=== PATIENT | female | born 1995 | race Caucasian/White ===

== ENCOUNTER 2018-12-11 20:31 | Day surgery (SDC) | payer OTHER ==
[2018-12-11 21:49] VITALS: BP 113/79; TEMP 98.9
--- NOTE | 2018-12-11 22:09 | PDOC.LDHP ---
Labor and Delivery H&P Chief complaint: contractions HPI: 23 y/o G1 at 39w6d, patient of Dr. Puckett, presents with ctx q 5 mins since 5pm. Denies VB, LOF, or decreased FM. ROS neg for HEENT, cv, pulm, gi, gu, neuro, psych, skin, musculoskeletal or constitutional symptoms other than mentioned above. OB History Details: None Current complications: none Past Medical History: None Current medications: pre- vitamins Previous surgical history: none Allergies/Adverse Reactions: Allergies Allergy/AdvReac Type Severity Reaction Status Date / Time No Known Allergies Allergy Unverified 12/11/18 21:41 Social history: none - Physical Exam Vital signs reviewed and normal: yes General: NAD, resting Lungs: nonlabored breathing Abdomen: gravid Extremeties: no edema FHT: category 1 (140s, mod variability, + accels, no decels) [place] contractions every: intermittent - Vaginal Exam cm dilated: 1 (1.5) Effacement: 75% Station: -3 - Assessment 23 y/o G1 at 39w6d with no e/o active labor. status reassuring with reactive NST. - Plan -: D/c home with precautions. Advised to keep appointment scheduled for tomorrow.
== END 2018-12-11 22:43 | disposition home or self-care (01) ==
LOC: L&D/OP 20:31
PROVIDERS: ATTEND Family Medicine
DX: O47.1 False labor at or after 37 completed weeks of gestation (principal); Z3A.39 39 weeks gestation of pregnancy
CPT/HCPCS: 99282

== ENCOUNTER 2018-12-12 00:04 | Inpatient (IN) | payer OTHER ==
[2018-12-12] MEDS ORDERED: Butorphanol Tartrate 1 MG/ML VIAL ONE (01:02)
[2018-12-12] MEDS ORDERED: Ondansetron PF 4 MG/2 ML Vial ONE ×3 (01:02→14:10)
[2018-12-12] MEDS ORDERED: Butorphanol Tartrate 1 MG/ML VIAL IM SCH (01:15)
[2018-12-12] MEDS: Lactated Ringer's 1,000 ML IV SCH ×4 (02:43→22:29)
[2018-12-12] MEDS ORDERED: Ondansetron PF 4 MG/2 ML Vial IVP PRN ×4 (02:53→11:32)
[2018-12-12] MEDS ORDERED: Promethazine HCl 25 MG/ML VIAL IM PRN ×3 (02:53→10:28)
[2018-12-12] MEDS ORDERED: Butorphanol Tartrate 1 MG/ML VIAL SLOW IVP PRN (02:53)
[2018-12-12] MEDS ORDERED: NS w/ Oxytocin 10 units 500 ML IV SCH (03:00)
[2018-12-12] MEDS ORDERED: Lidocaine 1% (PF) 30 ML VIAL SC PRN (03:00)
[2018-12-12] MEDS ORDERED: NS / Oxytocin 40 units/1000ml 1,000 ML IV SCH ×2 (03:00→11:45)
[2018-12-12] MEDS ORDERED: Fentanyl 4 mcg/Bup 0.1% Cadd 100 ML ONE (03:04)
[2018-12-12 03:08] LABS: Hemoglobin 11.7 g/dL (12.0-16.0); Mean Corpuscular HGB CONC 33.7 g/dL (32.0-36.0); Mean Corpuscular Hemoglobin 32.5 pg (27.0-31.0); Mean Corpuscular Volume 96.5 fL (78.0-98.0); Mean Platelet Volume 8.8 fL (7.4-10.4); Platelet Count 188 thou/uL (130-400); RBC Distribution Width 11.9 % (11.5-14.5); Red Blood Cell (RBC) Count 3.61 mill/uL (4.20-5.40); White Blood Cell (WBC) Count 17.7 thou/uL (4.8-10.8)
[2018-12-12 03:42] LABS: HBSAg Index 0.34 S/CO (0-0.99); Hep B Surf Ag Non-Reactive S/CO (NonReactive)
[2018-12-12] MEDS ORDERED: diphenhydrAMINE 50 MG/ML VIAL IVP PRN ×2 (03:47→10:28)
[2018-12-12] MEDS ORDERED: ePHEDrine/0.9% NaCl/PF SYRINGE 50 mg/10 ml SLOW IVP PRN (03:47)
[2018-12-12] MEDS ORDERED: Acetaminophen 325 MG TAB PO PRN (03:47)
[2018-12-12] MEDS ORDERED: Lactated Ringer's 500 ML IV PRN (03:47)
[2018-12-12] MEDS ORDERED: Naloxone HCl 0.4 mg/ml Vial IVP PRN ×4 (03:47→10:28)
[2018-12-12] MEDS ORDERED: Communication Order-Pharmacy FS SCH ×2 (04:00→10:30)
[2018-12-12] MEDS ORDERED: Fentanyl 4 mcg/Bupivacaine 0.1% Cassette 100 ML EPIDURAL SCH (04:00)
[2018-12-12 04:51] LABS: Syphilis Antibody Nonreactive (Nonreactive); Syphilis Antibody Index 0.04 S/CO (<1.00 Non-Reactive)
[2018-12-12] MEDS: NS w/ Oxytocin 10 units 500 ML IV SCH (06:31)
[2018-12-12] MEDS ORDERED: Ampicillin 2 GM in Sodium Chloride 0.9% 100 ML IVPB SCH (09:30)
[2018-12-12] MEDS ORDERED: Gentamicin Sulfate 80 MG in Premix Bag 1 BAG IVPB SCH (09:30)
[2018-12-12] MEDS ORDERED: Bicitra 30 ML UDCUP ONE (09:47)
[2018-12-12] MEDS ORDERED: Oxytocin 10 UNITS/ML VIAL ONE (10:03)
[2018-12-12] MEDS ORDERED: PROPOFOL 20 ML ONE (10:03)
[2018-12-12] MEDS ORDERED: Lidocaine 2% PF 5 ML VIAL ONE (10:18)
[2018-12-12] MEDS ORDERED: Lidocaine 2% MPF 10 ML AMP (For Epidural Use) ONE ×2 (10:24→15:00)
[2018-12-12] MEDS ORDERED: Fentanyl 100 MCG/2 ML VIAL ONE (10:24)
[2018-12-12] MEDS ORDERED: L&D-Morphine 4 MG/ML VIAL SLOW IVP PRN (10:28)
[2018-12-12] MEDS ORDERED: Naloxone HCl 0.4 mg/ml Vial IV PRN (10:28)
[2018-12-12] MEDS ORDERED: Promethazine HCl 25 MG SUPP PR PRN (10:28)
[2018-12-12] MEDS ORDERED: Meperidine HCl/PF 25 MG/ML VIAL SLOW IVP PRN (10:28)
[2018-12-12] MEDS ORDERED: HYDROmorphone 2 MG/ML VIAL SLOW IVP PRN (10:28)
[2018-12-12] MEDS ORDERED: Ondansetron HCl/PF 4 MG/2 ML Vial IVP PRN (10:28)
[2018-12-12] MEDS ORDERED: Methylergonovine 0.2 MG TAB ONE (10:30)
[2018-12-12] MEDS ORDERED: Ketorolac Tromethamine 30 MG/ML VIAL IVP SCH (10:30)
[2018-12-12] MEDS ORDERED: Misoprostol 200 MCG TAB ONE (10:30)
[2018-12-12] MEDS ORDERED: Methylergonovine 0.2 MG/ML VIAL ONE (10:30)
[2018-12-12] MEDS ORDERED: Carboprost 250 MCG/ML AMP ONE (10:30)
[2018-12-12] MEDS ORDERED: MORPHINE 5 MG/10 ML PF VIAL ONE (10:30)
[2018-12-12 11:02] LABS: Actual Bicarbonate (HCO3a) 21.4 mEq/L (22-28); Analyzer IN Cardio OR; Base Excess (BEa) -7.8 mEq/L (-2.0 to +3.0)
[2018-12-12] MEDS ORDERED: diphenhydrAMINE 25 MG CAP PO PRN (11:32)
[2018-12-12] MEDS ORDERED: Simethicone Chewable 80 MG TAB PO PRN (11:32)
[2018-12-12] MEDS ORDERED: Bisacodyl 10 MG SUPP PR PRN (11:32)
[2018-12-12] MEDS ORDERED: Lanolin Ointment 7 GM TUBE TOP PRN (11:32)
[2018-12-12] MEDS ORDERED: Lactated Ringer's 1,000 ML IV SCH (11:45)
[2018-12-12] MEDS ORDERED: Bupivacaine/Epinephrine 0.25% 30 ML VIAL ONE (15:00)
[2018-12-12] MEDS: Ibuprofen 800 MG TAB PO SCH ×2 (16:01→23:09)
[2018-12-12] MEDS: Ferrous Sulfate 325 MG TAB PO SCH (16:01)
[2018-12-12] MEDS: CEFAZOLIN 2 GM in Premix Bag 1 BAG IVPB SCH ×2 (16:03→23:25)
[2018-12-12] MEDS: metroNIDAZOLE 500 MG in Premix Bag 1 BAG IVPB SCH ×2 (16:03→22:05)
[2018-12-12] MEDS ORDERED: HYDROcodone/Acetaminophen 5/325 mg Tablet PO PRN ×2 (16:30→22:30)
--- NOTE | 2018-12-12 17:29 | OP ---
DATE OF PROCEDURE: 12/12/2018 SURGEON: Lloyd Puckett MD FITTER TYPE BAR AND SEGMENT: Trung Flores MD. PROCEDURE PERFORMED: Primary low-transverse section. ANESTHESIA: Epidural. QUANTITATIVE BLOOD LOSS: 1060 mL. PREOPERATIVE DIAGNOSES: 1. Term intrauterine 2. Failure to descend 3. Intrapartum fever 4. Non-reassuring heart tones POSTOPERATIVE DIAGNOSES: 1. Term intrauterine , delivered. 2. Failure to descend 3. Persistant OP presentation 4. Intrapartum fever 5. Hemorrhage secondary to uterine atony and extension of lower uterine segment INDICATIONS: Ms. Riley is a 23-year-old, 1, para 0, at 40.0 weeks, who presented in spontaneous labor last night. She dilated to 10 cm with 100% effacement and descended to 0 station before failing to descend for 2.5 hours with adequate contractions and adequate maternal effort. Discussion was had with the patient regarding proceeding with primary for failure to descend and maternal exhaustion. The patient also developed a fever of 100.4F while she was actively pushing. PROCEDURE IN DETAIL: The patient provided informed consent after risks, benefits, and alternatives were discussed. She received preoperative antibiotics of ampicillin 2 g IV, cefazolin 2 g IV, and gentamicin 80 mg IV. She was taken to the OR and her epidural was bolused. She was placed in the supine position with left lateral tilt and prepped and draped in usual sterile fashion. A Pfannenstiel incision was made. Subcutaneous tissues were sharply and bluntly dissected down to level of fascia, which was sharply nicked on both sides of the linea alba with scalpel. Curved Sorensen scissors were used to extend the fascial incision in the curvilinear fashion. Rectus muscles were divided digitally, retracted manually. The peritoneum was digitally entered and retracted manually. Bladder blade was placed and lower uterine segment was identified. A clean scalpel was used to make a low transverse score and the hysterotomy was carried down sharply in the midline with scalpel. Thick meconium-stained fluid was noted upon entry into the uterine cavity. The was noted to be deeply impacted in the pelvis in the occiput posterior position, but was successfully manually elevated to the level of the hysterotomy and easily delivered through the hysterotomy with fundal pressure. Additional thick meconium was noted to be coming from the child at this time. The cord was immediately cut, clamped, and the child was taken to the awaiting Resuscitative Team. Cord gas segment was collected as well as cord blood for routine analysis. The hysterotomy was exteriorized and dry curetted with two laparotomy sponges. Extension of the hysterotomy occurred bilaterally which did not involve the uterine arteries. Ring forceps and an Allis clamp were placed on the the inferior edge and the corners of the lower uterine segment. Uterine atony was noted and resolved with methergine x 1 and hemabate x 1. The hysterotomy was closed using 0 Vicryl in a running locking fashion. A second imbricating layer was done with a second 0 Vicryl stitch. There were several small bleeding vessels involving the serosa, which were addressed using Bovie cautery. Two small [id number] stitches were needed along the hysterotomy to make the hysterotomy completely hemostatic. The abdomen was irrigated and the posterior aspect of the uterus was inspected. There were two smaller serosal bleeding areas noted, which were addressed with Bovie cautery and cauterizing powder. Seprafilm was applied and the uterus was placed back in the abdomen. It was inspected one final time, noted to be hemostatic. The peritoneum was closed using 2-0 Vicryl stitch in a running nonlocking fashion. Rectus muscles were inspected and noted to be hemostatic. The fascia was closed using 0 Vicryl. Subcutaneous tissues were closed using 3-0 Vicryl. Skin was reapproximated with lokesh. Counts were correct x3. The patient tolerated the procedure well and went to the recovery unit for routine care. FINDINGS: 1. Grossly normal viable male , born at 1025 hours with Apgars of 8 and 9 at one and five minutes respectively. 2. Intact placenta with marked calcifications, sent to Pathology for further evaluation and due to intrapartum fever 3. Arterial cord gas collected at the time delivery with pH of 7.13. 4. Bilateral uterine extensions, which were appropriately reapproximated and hemostatic. 5. Thick meconium stained amniotic fluid. Dr. Puckett was present for the entire case. Job ID: [id number] [facility]
[2018-12-12] MEDS: Ketorolac Tromethamine 30 MG/ML VIAL IVP PRN (19:26)
[2018-12-12] MEDS ORDERED: Ferrous Sulfate 325 MG TAB PO SCH (21:00)
[2018-12-12] MEDS ORDERED: Meperidine HCl/PF 25 MG/ML VIAL IM PRN (22:30)
[2018-12-12] MEDS: Docusate Calcium (SURFAK) 240 MG CAP PO SCH (22:30)
[2018-12-13] MEDS: Ketorolac Tromethamine 30 MG/ML VIAL IVP PRN (02:50)
[2018-12-13] MEDS: Lactated Ringer's 1,000 ML IV SCH ×3 (02:50→19:20)
[2018-12-13] MEDS: metroNIDAZOLE 500 MG in Premix Bag 1 BAG IVPB SCH ×2 (05:18→14:50)
[2018-12-13 06:00] LABS: Hemoglobin 7.5 g/dL (12.0-16.0); Mean Corpuscular HGB CONC 33.5 g/dL (32.0-36.0); Mean Corpuscular Hemoglobin 32.8 pg (27.0-31.0); Mean Platelet Volume 7.8 fL (7.4-10.4); Platelet Count 130 thou/uL (130-400); Red Blood Cell (RBC) Count 2.27 mill/uL (4.20-5.40); White Blood Cell (WBC) Count 14.4 thou/uL (4.8-10.8)
[2018-12-13] MEDS: Ibuprofen 800 MG TAB PO SCH ×2 (06:32→14:02)
[2018-12-13] MEDS: NS w/ Oxytocin 10 units 500 ML IV SCH (06:32)
[2018-12-13] MEDS: CEFAZOLIN 2 GM in Premix Bag 1 BAG IVPB SCH ×2 (06:33→14:02)
[2018-12-13] MEDS: Docusate Calcium (SURFAK) 240 MG CAP PO SCH (08:50)
[2018-12-13] MEDS: Prenatal Vitamin 1 TAB PO SCH (08:50)
[2018-12-13] MEDS: Ferrous Sulfate 325 MG TAB PO SCH ×2 (08:50→16:44)
[2018-12-13] MEDS ORDERED: Ibuprofen 800 MG TAB ONE (22:05)
[2018-12-14] MEDS ORDERED: Ibuprofen 800 MG TAB ONE (04:46)
[2018-12-14] MEDS: Docusate Calcium (SURFAK) 240 MG CAP PO SCH ×2 (11:05→22:31)
[2018-12-14] MEDS: CEFAZOLIN 2 GM in Premix Bag 1 BAG IVPB SCH ×4 (11:05→22:30)
[2018-12-14] MEDS: Lactated Ringer's 1,000 ML IV SCH ×3 (11:06→18:35)
[2018-12-14] MEDS: Ibuprofen 800 MG TAB PO SCH ×3 (11:06→22:31)
[2018-12-14] MEDS: metroNIDAZOLE 500 MG in Premix Bag 1 BAG IVPB SCH ×3 (11:06→22:30)
[2018-12-14] MEDS: Prenatal Vitamin 1 TAB PO SCH (11:07)
[2018-12-14] MEDS: Ferrous Sulfate 325 MG TAB PO SCH ×2 (11:07→16:46)
[2018-12-14] MEDS: NS w/ Oxytocin 10 units 500 ML IV SCH (11:07)
[2018-12-14] MEDS ORDERED: Sodium Chloride 0.9% 10 ML ONE (13:41)
[2018-12-15] MEDS: NS w/ Oxytocin 10 units 500 ML IV SCH (06:50)
[2018-12-15] MEDS: Ibuprofen 800 MG TAB PO SCH ×2 (06:50→13:57)
[2018-12-15] MEDS: metroNIDAZOLE 500 MG in Premix Bag 1 BAG IVPB SCH ×2 (06:51→13:58)
[2018-12-15] MEDS: Ferrous Sulfate 325 MG TAB PO SCH (08:08)
[2018-12-15] MEDS: CEFAZOLIN 2 GM in Premix Bag 1 BAG IVPB SCH ×2 (08:08→15:40)
[2018-12-15] MEDS: Docusate Calcium (SURFAK) 240 MG CAP PO SCH (09:34)
[2018-12-15] MEDS: Prenatal Vitamin 1 TAB PO SCH (09:34)
[2018-12-15 14:53] VITALS: BP 123/70; TEMP 98.3
== END 2018-12-15 18:30 | disposition home or self-care (01) | DRG 787 ==
LOC: L&D/OP 00:04 → L&D 02:40 → 3SW 15:51
PROVIDERS: ADMIT Family Medicine; ATTEND Family Medicine
PROC: 10D00Z1 Extraction of Products of Conception, Low, Open Approach (ICD-10-PCS; principal; 2018-12-12)
DX: O76 Abnormality in fetal heart rate and rhythm complicating labor and delivery (principal); O75.2 Pyrexia during labor, not elsewhere classified; O72.1 Other immediate postpartum hemorrhage; O32.4XX0 Maternal care for high head at term, not applicable or unspecified; Z3A.40 40 weeks gestation of pregnancy; Z37.0 Single live birth
CPT/HCPCS: 36415; 51702; 82805; 85027; 86780; 86850; 86900; 86901; 87340; 88307; 99282; 99285; J0290; J0595; J0690; J1580; J1885; J2001; J2210; J2270; J2405; J2590; J2704; J3010; J3490

== ENCOUNTER 2020-09-24 02:51 | Emergency (ER) | payer OTHER ==
[2020-09-24] MEDS ORDERED: Lidocaine Viscous Sol 2% 15 ml UD Cup ONE (03:31)
[2020-09-24] MEDS ORDERED: Ondansetron PF 4 MG/2 ML Vial ONE ×2 (03:31→05:55)
[2020-09-24] MEDS ORDERED: Mag-Al 1200 mg/1200 mg/30 ML UDCUP ONE (03:31)
[2020-09-24 03:56] LABS: #Lymphocytes 0.7 thou/uL (1.20-3.40); #Monocytes 0.5 thou/uL (0.11-0.59); #Neutrophils 14.9 thou/uL (1.40-6.50); %Basophils 0.2 % (0.0-1.0); %Lymphocytes 4.5 % (21.0-51.0); %Neutrophils 92.2 % (42.0-75.0); Hemoglobin 14.1 g/dL (12.0-16.0); Mean Corpuscular HGB CONC 33.6 g/dL (32.0-36.0); Mean Corpuscular Hemoglobin 30.6 pg (27.0-31.0); Mean Corpuscular Volume 91.2 fL (78.0-98.0); Mean Platelet Volume 8.6 fL (7.4-10.4); Platelet Count 231 thou/uL (130-400); RBC Distribution Width 11.7 % (11.5-14.5); Red Blood Cell (RBC) Count 4.62 mill/uL (4.20-5.40); White Blood Cell (WBC) Count 16.2 thou/uL (4.8-10.8)
[2020-09-24 04:06] LABS: Pregnancy Test - Urine (BHCG) POSITIVE (Negative); Pregu Control Background? CLEAR/WHITE (CLR/WHITE); Pregu Control Bar Appear? YES (CONTROL BAR)
[2020-09-24 04:13] LABS: Bacteria/HPF None Seen HPF (None Seen); Bilirubin 1+ (Negative); Blood, Urine Negative (Negative); Clarity Clear (Clear); Glucose, Urine (Dipstick) Normal (Negative); Ketone, Urine Greater than 150 mg/dL (Negative); Leukocyte 75 Leu/uL (Negative); Nitrite Negative (Negative); Protein, Urine (Dipstick) 50 mg/dL (Neg-Trace); RBC/HPF 0-3 HPF (0-3); Specific Gravity, Urine 1.035 (1.002-1.036); Urobilinogen Greater than 12 mg/dL (Less than 2)
[2020-09-24 04:14] LABS: Specific Gravity 1.035 (1.002-1.036)
[2020-09-24 04:16] LABS: ALT (SGPT) 76 U/L (8-55); AST (SGOT) 42 U/L (5-34); Albumin 4.9 g/dL (3.5-5.0); Alkaline Phosphatase 94 U/L (40-110); Anion Gap 18 mmol/L (10-20); BUN (Urea Nitrogen) 12 mg/dL (7.0-18.7); Bilirubin, Total 2.1 mg/dL (0.2-1.2); Calc. Creatinine Clearance 0 mL/min (70-130); Calcium 10.3 mg/dL (7.8-10.44); Carbon Dioxide 22 mmol/L (22-29); Chloride 101 mmol/L (98-107); Globulin 3.7 g/dL (2.4-3.5); Glucose 90 mg/dL (70-105); Lipase 25 U/L (8-78); Potassium 4.1 mmol/L (3.5-5.1); Protein, Total 8.6 g/dL (6.0-8.3); Sodium 137 mmol/L (136-145)
[2020-09-24] MEDS ORDERED: cefTRIAXone\\ROCEPHIN 1 GM VIAL ONE (04:33)
[2020-09-24] MEDS ORDERED: Promethazine HCl 25 MG/ML VIAL ONE (06:41)
== END 2020-09-24 09:45 | disposition home or self-care (01) ==
LOC: ERS 02:51
DX: O21.9 Vomiting of pregnancy, unspecified (principal)
CPT/HCPCS: 76856; 80053; 81003; 81015; 81025; 83690; 84702; 85025; 87086; 93976; 96365; 96375; 96376; J0696; J2405; J2550

== ENCOUNTER 2020-09-25 05:32 | Inpatient (IN) | payer OTHER ==
[2020-09-25] MEDS ORDERED: Ondansetron PF 4 MG/2 ML Vial ONE ×2 (05:48→16:55)
[2020-09-25] MEDS ORDERED: Morphine 4 MG/ML VIAL ONE ×2 (05:55→07:10)
[2020-09-25] MEDS ORDERED: Piperacillin/Tazobactam 3.375 GM VIAL ONE (06:00)
[2020-09-25 06:38] LABS: Hemoglobin 12.1 g/dL (12.0-16.0); Mean Corpuscular HGB CONC 32.5 g/dL (32.0-36.0); Mean Corpuscular Volume 92.2 fL (78.0-98.0); Mean Platelet Volume 8.4 fL (7.4-10.4); Platelet Count 177 thou/uL (130-400); RBC Distribution Width 11.9 % (11.5-14.5); Red Blood Cell (RBC) Count 4.04 mill/uL (4.20-5.40)
[2020-09-25 06:51] LABS: ALT (SGPT) 46 U/L (8-55); AST (SGOT) 17 U/L (5-34); Albumin 3.8 g/dL (3.5-5.0); Alkaline Phosphatase 93 U/L (40-110); Anion Gap 15 mmol/L (10-20); BUN (Urea Nitrogen) 6 mg/dL (7.0-18.7); Bilirubin, Total 2.8 mg/dL (0.2-1.2); Calc. Creatinine Clearance 0 mL/min (70-130); Calcium 9.3 mg/dL (7.8-10.44); Carbon Dioxide 18 mmol/L (22-29); Chloride 105 mmol/L (98-107); Glucose 131 mg/dL (70-105); Lipase 43 U/L (8-78); Potassium 4.8 mmol/L (3.5-5.1); Protein, Total 6.8 g/dL (6.0-8.3); Sodium 133 mmol/L (136-145)
[2020-09-25 06:58] LABS: Band 12 % (5-11); Lymphocytes 3 % (21-51); MDiff Complete? YES; Monocytes 11 % (0-10); Neutrophil 74 % (42-75); Vacuoles SLIGHT
[2020-09-25] MEDS ORDERED: Lactated Ringer's 1,000 ML IV SCH (11:45)
[2020-09-25 11:57] LABS: SARS-CoV-2 NAA Rapid Test Not Detected (NotDetected)
[2020-09-25] MEDS: Piperacillin/Tazobactam 3.375 GM in Sodium Chloride 0.9% 100 ML IVPB SCH ×3 (12:34→20:13)
[2020-09-25] MEDS ORDERED: Morphine 2 MG/ML VIAL SLOW IVP PRN ×2 (12:59→18:50)
[2020-09-25] MEDS ORDERED: Morphine 4 MG/ML VIAL SLOW IVP PRN (13:00)
[2020-09-25 14:20] VITALS: BMI 25.7
[2020-09-25] MEDS ORDERED: Lidocaine 1% w/Epinephrine 1:100K 20 ML VIAL ONE (16:33)
[2020-09-25] MEDS ORDERED: Bupivacaine 0.25% HCL 30 ML VIAL ONE (16:33)
[2020-09-25] MEDS ORDERED: Fentanyl 100 MCG/2 ML VIAL ONE ×3 (16:41→18:21)
[2020-09-25] MEDS ORDERED: PROPOFOL 200 MG/20 ML VIAL ONE (16:55)
[2020-09-25] MEDS ORDERED: Glycopyrrolate 0.2 MG/ML 5 ML SYRINGE ONE (16:55)
[2020-09-25] MEDS ORDERED: Lidocaine 1% PF 5 ML VIAL ONE (16:55)
[2020-09-25] MEDS ORDERED: Dexamethasone 20 MG/5 ML VIAL ONE (16:55)
[2020-09-25] MEDS ORDERED: Rocuronium Bromide 10 MG/ML (10ML VIAL) ONE (16:55)
[2020-09-25] MEDS ORDERED: Succinylcholine 200 MG/10 ml SYRINGE FS ONE (16:55)
[2020-09-25] MEDS ORDERED: SUGAMMADEX SODIUM 200 MG/2 ML VIAL ONE (18:03)
[2020-09-25] MEDS ORDERED: Ondansetron HCl/PF 4 MG/2 ML Vial IVP PRN (18:28)
[2020-09-25] MEDS ORDERED: Promethazine HCl 25 MG/ML VIAL IM PRN (18:50)
[2020-09-25] MEDS ORDERED: Dextrose 50% Abboject 50 ML SYRINGE SLOW IVP PRN (18:50)
[2020-09-25] MEDS ORDERED: Dextrose 5% in Water 1,000 ML IV PRN (18:50)
[2020-09-25] MEDS: Lactated Ringer's 1,000 ML IV SCH (20:10)
[2020-09-25] MEDS: Morphine 4 MG/ML VIAL SLOW IVP PRN (20:11)
[2020-09-25] MEDS: Acetaminophen 325 MG TAB PO PRN (20:14)
[2020-09-25] MEDS ORDERED: Acetaminophen 325 MG TAB PO PRN (22:00)
[2020-09-25] MEDS ORDERED: Ondansetron PF 4 MG/2 ML Vial IVP PRN (22:00)
[2020-09-25] MEDS ORDERED: Ondansetron ODT 4 MG TAB SL PRN (22:00)
[2020-09-26] MEDS: Piperacillin/Tazobactam 3.375 GM in Sodium Chloride 0.9% 100 ML IVPB SCH ×4 (01:32→22:04)
[2020-09-26] MEDS: Morphine 4 MG/ML VIAL SLOW IVP PRN ×3 (03:09→20:02)
[2020-09-26] MEDS: Lactated Ringer's 1,000 ML IV SCH (06:42)
[2020-09-26] MEDS: D5 1/2 NS w/20 mEq KCL 1,000 ML IV SCH (18:27)
[2020-09-26] MEDS: HYDROcodone/Acetaminophen 7.5/325 mg Tablet PO PRN (22:03)
[2020-09-27] MEDS: Piperacillin/Tazobactam 3.375 GM in Sodium Chloride 0.9% 100 ML IVPB SCH ×4 (02:25→18:39)
[2020-09-27] MEDS: HYDROcodone/Acetaminophen 7.5/325 mg Tablet PO PRN ×3 (05:10→19:53)
[2020-09-27] MEDS: D5 1/2 NS w/20 mEq KCL 1,000 ML IV SCH ×4 (06:38→18:39)
[2020-09-27] MEDS ORDERED: Sodium Chloride 0.9% 1,000 ML IV SCH (11:15)
[2020-09-27] MEDS: Morphine 4 MG/ML VIAL SLOW IVP PRN (12:33)
[2020-09-27] MEDS: Ondansetron PF 4 MG/2 ML Vial IVP PRN (12:33)
[2020-09-27] MEDS: Acetaminophen 325 MG TAB PO PRN (12:34)
[2020-09-28] MEDS: Piperacillin/Tazobactam 3.375 GM in Sodium Chloride 0.9% 100 ML IVPB SCH ×4 (01:07→20:57)
[2020-09-28] MEDS: D5 1/2 NS w/20 mEq KCL 1,000 ML IV SCH ×3 (03:14→14:27)
[2020-09-28 04:58] LABS: Hemoglobin 8.4 g/dL (12.0-16.0); Mean Corpuscular HGB CONC 30.9 g/dL (32.0-36.0); Mean Corpuscular Hemoglobin 29.1 pg (27.0-31.0); Mean Corpuscular Volume 94.2 fL (78.0-98.0); Mean Platelet Volume 8.3 fL (7.4-10.4); Platelet Count 168 thou/uL (130-400); RBC Distribution Width 12.1 % (11.5-14.5); Red Blood Cell (RBC) Count 2.88 mill/uL (4.20-5.40); White Blood Cell (WBC) Count 14.4 thou/uL (4.8-10.8)
[2020-09-28 05:17] LABS: Band 17 % (5-11); Eosinophils 2 % (0-10); Lymphocytes 12 % (21-51); MDiff Complete? YES; Monocytes 5 % (0-10); Neutrophil 64 % (42-75); Platelet Morphology Comment Appears Adequate
[2020-09-28] MEDS: HYDROcodone/Acetaminophen 7.5/325 mg Tablet PO PRN (05:59)
[2020-09-28] MEDS ORDERED: Polyethylene Glycol 3350 17 GM Packet PO SCH (17:00)
[2020-09-29] MEDS: Acetaminophen 325 MG TAB PO PRN (01:04)
[2020-09-29] MEDS: Piperacillin/Tazobactam 3.375 GM in Sodium Chloride 0.9% 100 ML IVPB SCH ×3 (01:05→13:41)
[2020-09-29] MEDS: Ondansetron PF 4 MG/2 ML Vial IVP PRN (01:10)
[2020-09-29 07:24] VITALS: TEMP 97.9
[2020-09-29] MEDS ORDERED: Polyethylene Glycol 3350 17 GM Packet PO SCH (09:00)
[2020-09-29 11:44] VITALS: BP 106/70
[2020-09-29] MEDS: D5 1/2 NS w/20 mEq KCL 1,000 ML IV SCH ×2 (11:54→13:41)
== END 2020-09-29 15:57 | disposition home or self-care (01) | DRG 817 ==
LOC: ERS 05:32 → SJJU 10:27 → OBSVTOIN 10:27
PROVIDERS: ADMIT Surgery; ATTEND Surgery
PROC: 0DTJ4ZZ Resection of Appendix, Percutaneous Endoscopic Approach (ICD-10-PCS; principal; 2020-09-25)
DX: O99.611 Diseases of the digestive system complicating pregnancy, first trimester (principal); K35.32 Acute appendicitis with perforation, localized peritonitis, and gangrene, without abscess; O99.891 Other specified diseases and conditions complicating pregnancy; R00.0 Tachycardia, unspecified; Z3A.10 10 weeks gestation of pregnancy
CPT/HCPCS: 0240U; 36415; 36416; 74181; 76705; 80053; 83605; 83690; 85025; 88304; 96365; 96366; 96375; 96376; G0378; J1100; J2270; J2405; J2543; J2704; J3010; J3480; J3490; S0020

== ENCOUNTER 2020-10-16 17:00 | Emergency (ER) | payer OTHER ==
[2020-10-16 17:26] LABS: #Basophils 0.1 thou/uL (0.0-0.2); #Eosinphils 0.2 thou/uL (0.0-0.7); #Lymphocytes 1.4 thou/uL (1.20-3.40); #Monocytes 1.1 thou/uL (0.11-0.59); #Neutrophils 7.4 thou/uL (1.40-6.50); %Basophils 0.9 % (0.0-1.0); %Eosinophils 1.5 % (0.0-10.0); %Lymphocytes 13.8 % (21.0-51.0); %Monocytes 10.8 % (0.0-10.0); %Neutrophils 73.1 % (42.0-75.0); Hemoglobin 11.8 g/dL (12.0-16.0); Mean Corpuscular HGB CONC 31.8 g/dL (32.0-36.0); Mean Corpuscular Hemoglobin 28.9 pg (27.0-31.0); Mean Corpuscular Volume 90.7 fL (78.0-98.0); Mean Platelet Volume 9.4 fL (7.4-10.4); Platelet Count 204 thou/uL (130-400); RBC Distribution Width 11.9 % (11.5-14.5); Red Blood Cell (RBC) Count 4.08 mill/uL (4.20-5.40); White Blood Cell (WBC) Count 10.1 thou/uL (4.8-10.8)
[2020-10-16] MEDS ORDERED: Ondansetron PF 4 MG/2 ML Vial ONE (17:34)
[2020-10-16 17:47] LABS: ALT (SGPT) 209 U/L (8-55); AST (SGOT) 99 U/L (5-34); Alkaline Phosphatase 214 U/L (40-110); Anion Gap 18 mmol/L (10-20); BUN (Urea Nitrogen) 18 mg/dL (7.0-18.7); Calc. Creatinine Clearance 0 mL/min (70-130); Calcium 10.1 mg/dL (7.8-10.44); Carbon Dioxide 24 mmol/L (22-29); Chloride 95 mmol/L (98-107); Glucose 110 mg/dL (70-105); Potassium 3.7 mmol/L (3.5-5.1); Sodium 133 mmol/L (136-145)
[2020-10-16 18:22] LABS: Bacteria/HPF None Seen HPF (None Seen); Bilirubin 2+ (Negative); Blood, Urine Negative (Negative); Clarity Turbid (Clear); Glucose, Urine (Dipstick) Normal (Negative); Ketone, Urine 80 mg/dL (Negative); Leukocyte 75 Leu/uL (Negative); Nitrite Negative (Negative); Protein, Urine (Dipstick) 50 mg/dL (Neg-Trace); RBC/HPF 0-3 HPF (0-3); Specific Gravity, Urine 1.029 (1.002-1.036); Squamous Epithelial 0-3 HPF (0-3); Urobilinogen Greater than 12 mg/dL (Less than 2)
== END 2020-10-16 18:51 | disposition short-term general hospital (02) ==
LOC: ERS 17:00
DX: O21.1 Hyperemesis gravidarum with metabolic disturbance (principal); Z3A.12 12 weeks gestation of pregnancy
CPT/HCPCS: 36415; 80053; 81003; 81015; 83605; 85025; 96374; J2405

== ENCOUNTER 2022-03-08 13:56 | Emergency (ER) | payer OTHER, SELFPAY ==
[~2022-03-08 13:56] MED LIST: Iopamidol-370 76% 500 ML 1 ML ONE
[2022-03-08 14:45] LABS: #Basophils 0.1 thou/uL (0.0-0.2); #Eosinphils 0.4 thou/uL (0.0-0.7); #Lymphocytes 2.7 thou/uL (1.20-3.40); #Monocytes 0.5 thou/uL (0.11-0.59); #Neutrophils 6.6 thou/uL (1.40-6.50); %Basophils 0.6 % (0.0-1.0); %Lymphocytes 26.1 % (21.0-51.0); %Monocytes 4.8 % (0.0-10.0); %Neutrophils 64.4 % (42.0-75.0); Mean Corpuscular HGB CONC 33.6 g/dL (32.0-36.0); Mean Corpuscular Hemoglobin 31.2 pg (27.0-31.0); Mean Corpuscular Volume 93.1 fL (78.0-98.0); Mean Platelet Volume 8.2 fL (7.4-10.4); Platelet Count 234 thou/uL (130-400); Red Blood Cell (RBC) Count 4.15 mill/uL (4.20-5.40); White Blood Cell (WBC) Count 10.3 thou/uL (4.8-10.8)
[2022-03-08 14:55] LABS: BHCG - Serum Negative (NEGATIVE); Pregs Control Background? CLEAR/WHITE (CLR/WHITE); Pregs Control Bar Appear? YES (CONTROL BAR)
[2022-03-08 15:09] LABS: ALT (SGPT) 31 U/L (8-55); AST (SGOT) 23 U/L (5-34); Albumin 4.4 g/dL (3.5-5.0); Alkaline Phosphatase 79 U/L (40-110); Anion Gap 13 mmol/L (10-20); BUN (Urea Nitrogen) 17 mg/dL (7.0-18.7); Bilirubin, Total 0.3 mg/dL (0.2-1.2); Calc. Creatinine Clearance 0 mL/min (70-130); Carbon Dioxide 23 mmol/L (22-29); Chloride 108 mmol/L (98-107); Estimated GFR 75; Globulin 3.3 g/dL (2.4-3.5); Glucose 98 mg/dL (70-105); Potassium 3.6 mmol/L (3.5-5.1); Protein, Total 7.7 g/dL (6.0-8.3); Sodium 140 mmol/L (136-145)
[2022-03-08] MEDS ORDERED: Ondansetron PF 4 MG/2 ML Vial ONE (15:24)
[2022-03-08] MEDS ORDERED: Morphine 4 MG/ML VIAL ONE (15:24)
[2022-03-08] MEDS ORDERED: Ketorolac Tromethamine 30 MG/ML VIAL ONE (15:24)
== END 2022-03-08 16:55 | disposition home or self-care (01) ==
LOC: ERS 13:56
DX: S30.1XXA Contusion of abdominal wall, initial encounter (principal); S80.02XA Contusion of left knee, initial encounter; S80.01XA Contusion of right knee, initial encounter; V43.52XA Car driver injured in collision with other type car in traffic accident, initial encounter
CPT/HCPCS: 36415; 71045; 74177; 80053; 84703; 85025; 96374; 96375; J1885; J2270; J2405; Q9967